=== PATIENT | male | born 1975 | race Caucasian/White ===

== ENCOUNTER 2025-08-03 14:18 | Emergency (ER) | payer SELFPAY ==
[2025-08-03 14:20] VITALS: BP 156/119
[2025-08-03 14:45] LABS: Hematocrit 44.8 % (39.0-52.0); Hemoglobin 15.8 g/dL (13.0-18.0); Mean Corp Hgb Conc. 35.3 g/dL (33.0-37.0); Mean Corpuscular Volume 89.2 fL (80.0-94.0); Nucleated Red Blood Cells % 0 % (-); Platelet Count 275 10^3/uL (130-400); Red Cell Dist. Width 13.5 % (11.5-14.5)
--- NOTE | 2025-08-03 14:47 | ED.GENMED ---
History of Present Illness
General
Chief Complaint: Abdominal Pain
Source: patient and spouse
Time Seen by Provider: 08/03/25 14:46
History of Present Illness
History of Present Illness:
This patient is a 50-year-old male presents emergency department complaints of left lower quadrant pain that started gradually 3 days ago, is persistent, and getting progressively worse. He has nausea but no vomiting, also reports anorexia. He
always feels feverish which is unchanged. He denies chest pain, shortness of breath or back pain. The pain is made worse with certain movements or coughing. The pain does not radiate. He notes that when he urinates the pain is worse in the left
lower quadrant, but he denies dysuria, urgency, frequency, hematuria. Bowel movements are normal.
Past History
Past History
ED Past Medical History: None
Social History
Tobacco: Smoker
Alcohol: Occasional
Drug: Marijuana
Personal:
Living: with family
Employment: Employed
Phy Exam
Physical Exam
Physical Exam:
GENERAL: Alert , in no apparent distress, very pleasant
EYE: pupils equal and reactive
NECK: Supple, no significant adenopathy.
ENT: o/p clr, mmm, poor dentition.
CARDIAC: Regular rate and rhythm .
LUNGS: Clear breath sounds bilaterally, no acute respiratory distress, no wheezes/rales/rhonchi
ABDOMEN: Soft, moderate left lower quadrant tenderness, no r/g, no cvat
NEUROLOGICAL: Alert and oriented, no focal neuro deficits
SKIN: Warm and dry, skin intact.
MUSCULOSKELETAL: No edema, well perfused.
PSYCH: Normal and appropriate interaction.
Course
Orders/Labs/Results
Orders:
Orders
08/03/25 14:25
Electrocardiogram (*1) Urgent
Reason for Study: Hypertension, Benign
EKG- Treatment ONCE
08/03/25 14:32
CMP [Comprehensive Metabolic Panel] Urgent
Complete Blood Count/With Diff Urgent
Lipase Urgent
Troponin I Urgent
08/03/25 14:47
CT Abd/Pel (IV only)-DH only Urgent
Comment:
Reason For Exam: llq pain
08/03/25 16:28
Morphine Sulfate 4 mg IV NOW STA
08/03/25 18:04
Case Management Consult ONCE
Case Management Consult: Discharge Planning
08/03/25 18:06
Ciprofloxacin HCl [Cipro] 500 mg PO NOW STA
MetroNIDAZOLE [Flagyl] 500 mg PO NOW STA
08/03/25 18:39
Ciprofloxacin HCl [Cipro] 500 mg PO NOW STA
MetroNIDAZOLE [Flagyl] 500 mg PO NOW STA
08/03/25 18:40
MetroNIDAZOLE [Flagyl] 500 mg PO NOW STA
Abnormal Lab Results
08/03/25
14:32
MCH 31.5 H pg
(27.0-31.0)
Absolute Monos (auto) 0.7 H 10^3/uL
(0.1-0.6)
Lymphocytes % 20.2 L %
(20.5-51.1)
Glucose 153 H mg/dl
(70-99)
08/03/25 14:32
08/03/25 14:32
Vital Signs
Initial and Last Documented VS:
Initial Vital Signs
Temp Pulse Resp BP Pulse Ox
97.7 F 101 18 156/119 99
08/03/25 14:20 08/03/25 14:20 08/03/25 14:20 08/03/25 14:20 08/03/25 14:20
Last Documented Vital Signs
Temp Pulse Resp BP Pulse Ox
97.7 F 85 16 169/111 99
08/03/25 14:20 08/03/25 15:07 08/03/25 15:07 08/03/25 15:07 08/03/25 14:50
*Pulse Oximetry
SaO2: 99
Update Note
Update Note:
Patient presents to the Emergency Department with __abdominal pain for 3 days
Number and Complexity of Problems Addressed at the Encounter
� Chronic conditions affecting care:
� Acute Exacerbation and/or Progression of Chronic Illness:
� Differential Diagnosis includes: But not limited to diverticulitis, appendicitis, pyelonephritis, bowel obstruction, etc. etc.
Amount and/or Complexity of Data to be Reviewed and Analyzed
� I performed an independent evaluation of and my interpretation is:
EKG:
CT:Mild acute diverticulitis of the proximal sigmoid colon. No perforation or abscess.
Mild submucosal fat deposition involving the ileum. Such findings are nonspecific, and may be related to patient body habitus. Such an appearance has also been described in patients with a history of inflammatory bowel disease.
Incidental left scrotal hydrocele versus epididymal head cyst.
Xrays:
Laboratory Studies: White blood cell count normal
Other:
� Review of other/old records reveals:
� Clinical information was obtained by an independent historian:
� Prescriptions/Medications Considered but not given:
� Further testing considered but not performed:
Risk of Complications and/or Morbidity or Mortality of Patient Management
� Social determinants of health affecting care:
� Discussion with other providers (PCP, Hospitalists, Consultants, etc):
� Escalation of care including admission/observation vs risk of discharge considered: IV being placed now, CT ordered patient declines pain medication at this time, overall well-appearing.
Patient required 1 dose of pain medication, remained stable, abdomen soft, minimally tender, no rebound or guarding, no nausea or vomiting. Discussed with him CT results including questionable IBS and likely hydrocele. Given that patient has had
persistent left nontender testicular swelling, likely related to hydrocele however I did recommend that he get a dedicated ultrasound of testicles with urology promptly for further evaluation. Patient appears to be a good candidate for outpatient
management given no fever, minimal pain, tolerating p.o., etc. I have asked case management to see patient in regards to helping him fill his meds.
Case management is currently not here to help patient. However, I put a consult in and left a lengthy message on their voicemail at extension [phone]. Patient will be expecting their call tomorrow in order to assist with filling his prescription. He
is very clear that if he is for some reason unable to have these prescriptions fills he needs to return to the emergency department so that he can take his antibiotics which is incredibly important. I also discussed with him importance of follow-up
overall and reasons to return to the ER. Patient was given 1 dose of ciprofloxacin and 2 doses of Flagyl that he can take tomorrow while awaiting resolution.
ED Attending Note
-
Portions of this chart may have been created with voice recognition software.� Occasional wrong word or��sound alike� substitutions may have occurred due to the inherent limitations of voice recognition software.
Discharge Plan
Departure
Patient Disposition: Home (Routine Discharge)
Date of Disposition: 08/03/25
Time of Disposition: 18:42
Patient with high blood pressure during this ER visit?: Yes
Condition: Good
Discharge Problem:
Diverticulitis
Instructions: Diverticulitis (DC), BLOOD PRESSURE
Prescriptions:
New
metronidazole 500 mg tablet
500 mg PO Q8H 7 Days Qty: 21 0RF
ciprofloxacin HCl 500 mg tablet
500 mg PO BID Qty: 14 0RF
Referrals:
,Lisa Tijerina MD [Active, Gastroenterology] - Next open appointment
NONE,* [Family Provider, Internal Medicine]
Activity Restrictions/Additional Instructions:
PLEASE SEE ATTACHED CAT SCAN, YOU HAVE FINDINGS THAT REQUIRE PROMPT FOLLOW-UP WITH YOUR DOCTOR, PLEASE DO THIS SOON. IF YOU DEVELOP INCREASING NEW OR PERSISTENT PAIN, ANY FEVER, VOMITING, CHEST PAIN, SHORTNESS OF BREATH, GET WORSE, DO NOT GET
BETTER, OR OTHER WORRISOME SIGNS, PLEASE RETURN TO THE ER IMMEDIATELY! IT IS VERY IMPORTANT THAT YOU ARE ABLE TO TAKE YOUR MEDICATIONS. IF YOU FOR SOME REASON ARE UNABLE TO TAKE THESE MEDICINES OR GET YOUR PRESCRIPTION FILLED, PLEASE CALL
[phone] OR RETURN TO THE EMERGENCY DEPARTMENT IMMEDIATELY FOR ASSISTANCE.
Interventions
Interventions:
ZL-Esmxsn-Ndioodqnnn Assessment Last Done: 08/03/25 14:56
Discharge Date and Time
Print Language: ALGERIAN
[2025-08-03 14:56] VITALS: BMI 30.2
[2025-08-03 14:58] LABS: ALT (SGPT) 16 U/L (0-50); AST (SGOT) 19 U/L (17-59); Albumin 4.2 g/dl (3.5-5.0); Alkaline Phosphatase 88 U/L (38-126); Blood Urea Nitrogen 19 mg/dl (9-20); Calcium 9.1 mg/dl (8.4-10.2); Carbon Dioxide 24 mmol/L (22-30); Chloride 106 mmol/L (98-107); Estimated Creatinine Clearance 71 ml/min; Glucose 153 mg/dl (70-99); Lipase 136 U/L (23-300); Potassium 4.0 mmol/L (3.5-5.1); Sodium 135 mmol/L (135-145); Total Protein 7.0 g/dl (6.3-8.2); eGFR > 60.00
[2025-08-03 15:07] VITALS: BP 169/111
[2025-08-03 15:08] LABS: Troponin I 0.020 ng/ml
[2025-08-03] MEDS: MORPHINE SULFATE 4 MG IV (16:38)
[2025-08-03] MEDS: CIPRO 500 MG PO (18:46)
[2025-08-03] MEDS: FLAGYL 500 MG PO (18:46)
--- NOTE | 2025-08-04 09:06 | EDCM ---
I called [facility] and left a voicemail about assistance with cost of medications. Per Dr Wayne, pt was prescribed Flagyl and Cipro. With [facility] the cost of Flagyl should be between $2 and $8. The cost of Cirpro with [facility] should be between $5 and
$20. This information was left on his voicemail, I also left instructions to print [facility] card or to check with [facility] to see if they have the cards or could assist him with [facility] discount. I left my number for call back if he has any additional
questions.
== END 2025-08-03 18:58 | disposition home or self-care (01) ==
LOC: EMR 14:18
PROVIDERS: Emergency Medicine; EMERGENCY PHYSICIAN Emergency Medicine
DX: K57.32 Diverticulitis of large intestine without perforation or abscess without bleeding (principal); F17.200 Nicotine dependence, unspecified, uncomplicated; I10 Essential (primary) hypertension
CPT/HCPCS: 99284; 96374; 74177; 80053; 83690; 84484; 85025; 93005; Q9967